=== PATIENT | female | born 1985 | race Caucasian/White ===

== ENCOUNTER 2017-04-02 22:10 | Emergency (ER) | payer OTHER ==
[~2017-04-02] VITALS: Ht 154.9 cm; Wt 65.0 kg
[2017-04-03 03:30] VITALS: BP 99/55
== END 2017-04-03 04:34 | disposition home or self-care (01) ==
LOC: ED 23:59
DX: S05.12XA Contusion of eyeball and orbital tissues, left eye, initial encounter (principal); F10.120 Alcohol abuse with intoxication, uncomplicated; W01.0XXA Fall on same level from slipping, tripping and stumbling without subsequent striking against object, initial encounter; Y93.89 Activity, other specified; Y92.89 Other specified places as the place of occurrence of the external cause; Y99.8 Other external cause status
CPT/HCPCS: 70450; 70486; 72125; 82962; 99285